=== PATIENT | female | born 1960 | race Caucasian/White ===

== ENCOUNTER → 2021-05-09 09:49 | Outpatient (BNVA) | payer BC, SELFPAY | PROVIDERS: Visit Provider Nurse Practitioner Family | DX: Z20.822 Contact with and (suspected) exposure to COVID-19 (principal); J01.00 Acute maxillary sinusitis, unspecified; Z11.52 Encounter for screening for COVID-19 | CPT/HCPCS: 87635 ==

== ENCOUNTER → 2021-05-23 10:24 | Outpatient (BNVA) | payer BC, SELFPAY | PROVIDERS: Visit Provider Obstetrics & Gynecology | DX: Z12.4 Encounter for screening for malignant neoplasm of cervix (principal) | CPT/HCPCS: 88175 ==

== ENCOUNTER → 2021-10-15 14:09 | Outpatient (BNVA) | payer OTHER, SELFPAY | PROVIDERS: Visit Provider Nurse Practitioner Family | DX: Z20.822 Contact with and (suspected) exposure to COVID-19 (principal) | CPT/HCPCS: 87635 ==

== ENCOUNTER → 2021-12-26 08:42 | Outpatient (BNVA) | payer OTHER, SELFPAY | PROVIDERS: Visit Provider Nurse Practitioner | DX: I10 Essential (primary) hypertension (principal) | CPT/HCPCS: 80053; 80061; 84443 ==

== ENCOUNTER 2022-08-12 08:17 | Outpatient (CLI) | payer OTHER, SELFPAY ==
--- NOTE | 2022-08-12 08:27 | MM_ITS ---
WS: [email or web address] SCREENING DIGITAL BREAST TOMOSYNTHESIS MAMMOGRAM WITH CAD HISTORY: SCREENING COMPARISON: 09/20/2015 Bilateral CC and MLO with tomosynthesis and synthetic mammography submitted. Computer aided detection analyzed. Breast composition: There are scattered areas of fibroglandular density. Circumscribed 10 mm mass in the anterior medial LEFT breast near 7:00. Otherwise no interval change s dae 2014. No suspicious calcifications. MM/[place] [id number] IMPRESSION: BI-RADS: 0-Incomplete: Need additional imaging evaluation FOLLOW UP: Need Additional Imaging Recommendation: Limited LEFT breast ultrasound directed to 7:00.
== END 2022-08-12 08:18 | disposition home or self-care (01) ==
PROVIDERS: PCP Nurse Practitioner; Visit Provider Nurse Practitioner
DX: Z12.31 Encounter for screening mammogram for malignant neoplasm of breast (principal)
CPT/HCPCS: 77063; 77067

== ENCOUNTER 2022-09-10 14:09 | Outpatient (CLI) | payer OTHER, SELFPAY ==
--- NOTE | 2022-09-10 14:43 | US_ITS ---
WS: [email or web address] ULTRASOUND LEFT BREAST HISTORY: Follow-up LEFT breast mass seen by mammography. COMPARISON: 08/12/2022 and 12/17/2018 TECHNIQUE: 2-D and Doppler. In the LEFT breast at 8:00, 2 cm from the nipple is a hypoechoic well-circumscribed mass measuring 9 x 7 x 8 mm. There is mild peripheral increased vascularity. This corresponds in size and location to the mammographic abnormality. US/US breast LT limited* [id number] IMPRESSION: BI-RADS: 4-Suspicious Finding-Biopsy Should Be Considered FOLLOW-UP: Biopsy Recommended Ultrasound-guided biopsy recommended LEFT breast mass at 8:00. Notified JESS Chinchilla at 09/10/2022 3:43 PM.
== END 2022-09-10 14:10 | disposition home or self-care (01) ==
PROVIDERS: PCP Nurse Practitioner; Visit Provider Nurse Practitioner
DX: R92.8 Other abnormal and inconclusive findings on diagnostic imaging of breast (principal); N63.24 Unspecified lump in the left breast, lower inner quadrant
CPT/HCPCS: 76642

== ENCOUNTER 2022-10-09 09:24 | Outpatient (CLI) | payer OTHER, SELFPAY ==
--- NOTE | 2022-10-09 09:48 | US_ITS ---
WS: [email or web address] ULTRASOUND-GUIDED LEFT BREAST BIOPSY HISTORY: LEFT breast mass. COMPARISON: 12/17/2018, 08/12/2022 and 09/10/2022 Procedure, risks and complications are explained to the patient. Medications are reviewed. Consent is obtained. The mass in the LEFT breast is localized with ultrasound. Mass localizes to 8:00, 2 cm from the nippl e. Skin is cleansed with ChloraPrep and anesthetized with 1% buffered lidocaine. Small dermatome is m jesu. Under sterile conditions mass is biopsied with a 14-gauge Achieve needle. Multiple core biopsies are performed. Material placed in formalin and sent to pathology for review. No complications encoun tered. Breast tissue marker (Bard ultrasound enhanced ribbon): Single. Patient left the radiology suite with no complications. [place] is [place] [facility] [place] [facility] with any concerns. US/[place] [id number] IMPRESSION: 1. Uncomplicated core needle biopsy LEFT breast mass at 8:00, 2 cm from the ni pple. PATHOLOGY: Invasive ductal carcinoma, moderately to poorly differentiated. [place] profile pending. RECOMMENDATION: Surgical and oncologic follow-up.
[2022-10-14 06:19] LABS: Breast Profile ER,PR,HER2,Ki-6 See Report
== END 2022-10-09 09:25 | disposition home or self-care (01) ==
PROVIDERS: PCP Nurse Practitioner; Visit Provider Nurse Practitioner
DX: N63.24 Unspecified lump in the left breast, lower inner quadrant (principal); C50.312 Malignant neoplasm of lower-inner quadrant of left female breast
CPT/HCPCS: 19083; 88305; 88361; 88374

== ENCOUNTER → 2022-10-13 09:55 | Outpatient (BNVA) | payer OTHER, SELFPAY | PROVIDERS: PCP Nurse Practitioner; Visit Provider Nurse Practitioner Family | DX: G43.909 Migraine, unspecified, not intractable, without status migrainosus (principal); I10 Essential (primary) hypertension; F41.9 Anxiety disorder, unspecified; R89.7 Abnormal histological findings in specimens from other organs, systems and tissues | CPT/HCPCS: 80053; 80061; 84443; 85025 ==

== ENCOUNTER 2022-10-24 07:49 | Day surgery (SDC) | payer OTHER, SELFPAY ==
[2022-10-23 13:04] VITALS: BMI 38.0
[2022-10-24] VITALS (9 sets, daily range): BP systolic 138–178; BP diastolic 57–98; PULSE 18–81; RESP 15–19; TEMP 36.2–36.6; O2SAT 92–100
--- NOTE | 2022-10-24 | US_ITS ---
WS: [email or web address] ULTRASOUND-GUIDED LEFT BREAST NEEDLE LOCALIZATION HISTORY: Localization prior to surgery. LEFT breast mass at 8:00. Known malignancy. Procedure, risks and complications were explained to the patient. Consent is obtained. Skin is cleansed with ChloraPrep and anesthetized with 1% buffered lidocaine. Needle and guidewire pl aced to the area of concern with no complications. Ultrasound guidance performed during the needle lo calization. Guidewire is left within the lesion. Guidewire secured and no complications encountered. Patient is being transported to the OR suite. Specimen radiograph is also reviewed. Specimen contains the mass and the wire. RECOMMENDATIONS: Follow-up with surgery and oncology. US/US breast surgical specimen IMPRESSION: 1. Uncomplicated wire localization of the LEFT breast mass at 8:00. 2. Mass contained within the specimen. PATHOLOGY RESULTS: Excisional biopsy contains the mass, invasive carcinoma. Ple ase see the entire report for further details.
--- NOTE | 2022-10-24 08:15 | US_ITS ---
WS: [email or web address] ULTRASOUND-GUIDED LEFT BREAST NEEDLE LOCALIZATION HISTORY: Localization prior to surgery. LEFT breast mass at 8:00. Known malignancy. Procedure, risks and complications were explained to the patient. Consent is obtained. Skin is cleansed with ChloraPrep and anesthetized with 1% buffered lidocaine. Needle and guidewire pl aced to the area of concern with no complications. Ultrasound guidance performed during the needle lo calization. Guidewire is left within the lesion. Guidewire secured and no complications encountered. Patient is being transported to the OR suite. Specimen radiograph is also reviewed. Specimen contains the mass and the wire. RECOMMENDATIONS: Follow-up with surgery and oncology. US/[place] [id number] IMPRESSION: 1. Uncomplicated wire localization of the LEFT breast mass at 8:00. 2. Mass contained within the specimen. PATHOLOGY RESULTS: Excisional biopsy contains the mass, invasive carcinoma. Ple ase see the entire report for further details.
--- NOTE | 2022-10-24 08:30 | PC.NURSE ---
Patient taken to [facility] per ora
--- NOTE | 2022-10-24 09:23 | PC.NURSE ---
Patient was injected with 1.05 mCi Tc99m Tilmanocept Lymphoseek at 0905 by Medina Bermudez [facility] in the upper outer ( 1:00 position) quadrant of the left breast. No complications.
[2022-10-24] MEDS: sodium chloride 0.9% 1,000 ML 30 ML IV (09:30)
--- NOTE | 2022-10-24 09:33 | W.PM.OPSUD ---
Surgery/Procedure H&P Update DATE OF PROCEDURE: October 24, 2022 DATE H&P PERFORMED: 10/21/22 PREOP DIAGNOSIS: Left Breast Cancer PLANNED PROCEDURE: Operation Date: 10/24/22 09:45 Proposed Procedures p needle loc left breast lumpectomy sentinel lymph node bx 3850 [id number] 42433 61912, N63.20(Left) - DO lauren Rothman Sentinal Lymph Node Biopsy(Left) - Hung Alicia DO
--- NOTE | 2022-10-24 09:34 | ANES.PREANE2 ---
Pre-Anesthetic Assessment Height/Weight: Height 1.63 m Weight 100.698 kg Temp Pulse Resp BP Pulse Ox O2 Del Method 97.4 F L 68 17 177/88 99 10/24/22 08:12 10/24/22 08:12 10/24/22 08:12 10/24/22 08:12 10/24/22 08:12 10/24/22 08:12 Preop Diagnosis: Left Breast Cancer Operation Date: 10/24/22 09:45 Proposed Procedures p needle loc left breast lumpectomy sentinel lymph node bx 3850 18434 12235 49477, N63.20(Left) - Hung lAicia DO s Sentinal Lymph Node Biopsy(Left) - Hung Alicia DO Familial anesthetic complications: PONV Was Beta Stu taken within 24 hours: N/A Was Clonidine taken within 24 hours: N/A Last intake: Intake Last Liquid Date 10/24/22 Last Liquid Time 21:00 Last Solid Date 10/24/22 Last Solid Time 21:00 Social No alcohol and No tobacco Exam alert, oriented x 3, clear to auscultation bilaterally and regular rate & rhythm Airway Mallampati: Class II Dentition: full Pulmonary None reported snores CV/HEM Hypertension None reported Hepatic None reported GI None reported Metabolic None reported Anesthetic Plan ASA status: 3 Anesthesia: General Risk of > 500 ml blood loss (7ml/kg in children): No Medications/Allergies Home Medications Medication Instructions Recorded Confirmed Last Taken Type lisinopril 20 mg tablet 20 mg PO DAILY #30 tabs 10/13/22 10/23/22 10/23/22 Rx metoprolol tartrate 50 mg tablet 50 mg PO BID #60 tabs 10/13/22 10/23/22 10/23/22 Rx doxepin 10 mg capsule 10 mg PO TID #90 caps 10/17/22 10/24/22 Unknown Rx venlafaxine 75 mg capsule,extended 75 mg PO QAM #30 caps 10/17/22 10/23/22 10/23/22 Rx release 24 hr (Effexor XR) Allergies Allergy/AdvReac Type Severity Reaction Status Date / Time adhesive Allergy rash Verified 10/23/22 13:02 [facility] Anesthesia Medical History Essential hypertension Migraine Obesity (BMI 30-39.9) Surgical History History of ankle surgery left History of hysterectomy supracervical LH History of surgery on wrist left Family History Mother Cervical cancer Thyroid disease hyperthyroidism Father Diabetes Hyperlipidemia Stroke Denies family history of CAD (coronary artery disease) Clotting disorder Chronic kidney disease (CKD) Bleeding disorder Hypertension Social History Smoking and tobacco status: never smoked Second hand smoke exposure: No Smoking risk assessment/counseling performed?: Yes Alcohol intake: current Desire information about alcohol rehabilitation?: No Counseling given: Yes Desire information about substance/drug rehabilitation?: No Counseling given: No Adopted: No Caregiver/support person: No Lives independently: Yes Housing: House Marital status: Single Number of children: 3 Highest education level completed: High School Graduate service: No Current occupational status: employed Current occupation: [employer] History of recent travel: No Current gender identity: Female Data Anesthesia Cardiac Studies: No Data to Display
[2022-10-24] MEDS: midazolam 1 mg/mL INJ 2 mL 2 MG IVP (09:40)
[2022-10-24] MEDS: ceFAZolin 2,000 MG in sodium chloride 0.9% (plus) 50 ML 100 MG IV (09:49)
[2022-10-24] MEDS: isosulfan blue 10 mg/mL SDV 5mL SUBCUT (11:11)
--- NOTE | 2022-10-24 11:23 | PM.OP ---
Operative Report Date of procedure: October 24, 2022 Pre-op diagnosis: Preop Diagnosis Left Breast Cancer Post-op diagnosis: same Procedure done: Left breast lumpectomy with needle insertion and radiologic correlation and sentinel lymph node biopsy Implants: Pepe Specimens removed/disposition: Left breast lumpectomy Additional superior margin Left axillary sentinel lymph node Surgeon: Dr. Hung Alicia DO Anesthesia: General Estimated blood loss (mL): 10 Complications: None apparent Brief History: There is a very pleasant 62-year-old female with biopsy-proven left breast cancer. Left breast lumpectomy with needle insertion and radiologic correlation and sentinel lymph node biopsy was indicated. The risks and benefits were explained and documented. Procedure: After radiotracer was injected and wire localization was performed by radiology, the patient was brought back into the operating room. She was placed on the OR table in the supine position. The left breast and axilla were inspected prepped and draped in usual sterile fashion. Lymphazurin blue was injected underneath the left nipple and massaged for 5 minutes. A timeout was performed. All present were in agreement. A 4 cm incision was made in the left axilla. Dissection was carried down with electrocautery. The [place] counter was used to locate a sentinel lymph node. The nipple measured 9428 on the [place] counter, and a blue sentinel lymph node was identified in the left axilla that measured 518 on the [place] counter. Inspection of the axilla revealed no other blue lymph nodes or areas of [place] counter recognition. Hemostasis was noted. Next, after localization a semicircular incision was made around the medial aspect of the areola. Electrocautery was used to carve out a lumpectomy specimen. The entire needle was included. Dissection was carried down to the pectoralis major muscle. Specimen was taken out en bloc. Short stitch tran superior. Long stitch tran lateral. Double tailed stitch tran anterior. The superior margin appeared to be close and therefore additional superior margin was taken. An additional slice of superior margin was taken with electrocautery. Short stitch marked superior. Long stitch marked lateral. Double stitch marked inferior. Hemostasis was achieved with electrocautery. Specimen was sent to radiology who said the clip and wire were surrounded by adequate tissue margins. The dermis was approximated with 3-0 Vicryl. The skin was closed with 4-0 Monocryl in a subcuticular and running fashion. Dermabond was applied. Patient tolerated the procedure well.
--- NOTE | 2022-10-24 11:57 | PC.NURSE ---
Report received from Wolfgang Noe RN
[2022-10-24] MEDS: TRAMadol 50 mg Tablet 100 MG PO (12:48)
--- NOTE | 2022-10-24 13:24 | ANE.PACU2 ---
Inpatient post-anesthesia follow up: Airway intact: Yes Vital signs: Temperature 97.1 F Pulse Rate 68 Respiratory Rate 15 Blood Pressure 138/63 Pulse Oximetry 93 Oxygen Delivery Me thod Room Air Oxygen Flow Rate 6 Fraction of Inspir ed Oxygen Hydration adequate: Yes Nausea and vomiting: No Pain level: 1 Mental status: Baseline
== END 2022-10-24 13:10 | disposition home or self-care (01) ==
PROVIDERS: PCP Nurse Practitioner; Visit Provider Surgery
PROC: (CPT 19120; principal; 2022-10-24 09:45)
PROC: (CPT 19301; 2022-10-24 09:45)
DX: C50.912 Malignant neoplasm of unspecified site of left female breast (principal); I10 Essential (primary) hypertension
CPT/HCPCS: 19301; 38500; 19285; 38792; 88305; 88307; A9520; C1889; J0330; J0690; J1100; J1170; J1200; J2250; J2370; J2405; J2704; J3010; J3490; J7030; Q9968

== ENCOUNTER 2022-11-04 15:14 | Outpatient (CLI) | payer OTHER, SELFPAY ==
--- NOTE | 2022-11-04 15:00 | XR_ITS ---
WS: [email or web address] DEXA (DUAL ENERGY X-RAY ABSORPTIOMETRY) Bone mineral density was performed using a [facility] machine. HISTORY: Baseline COMPARISON: None available. Lumbar spine BMD (L1-L4): 1.101 g/cm2 T score: -0.7 Z score: -0.2 Total hip BMD: Left: 0.978 g/cm2. T score: -0.2 Z score: 0.1 Right: 0.944 g/cm2. T score: -0.5 Z score: -0.2 10 year probability of a major osteoporotic fracture is 12.4%. XR/XR DEXA axial skeleton* [id number] IMPRESSION: NORMAL BONE MINERAL DENSITY based upon the WHO classification for females.
== END 2022-11-04 15:15 | disposition home or self-care (01) ==
PROVIDERS: PCP Nurse Practitioner; Visit Provider Internal Medicine Hematology & Oncology
DX: C50.912 Malignant neoplasm of unspecified site of left female breast (principal); Z79.811 Long term (current) use of aromatase inhibitors
CPT/HCPCS: 77080

== ENCOUNTER 2022-12-24 13:44 | Oncology outpatient (recurring) (ONCR) | payer OTHER, MEDICAID, SELFPAY ==
[2022-11-28 09:41] LABS: Basophils % 0.3 %; Eosinophils # 0.2 10^3/uL (0.0-0.8); Eosinophils % 3.5 %; Hematocrit 39.7 % (37.0-47.0); Hemoglobin 12.7 g/dL (11.5-15.3); Lymphocytes % 31.8 %; Mean Corpuscular Hemoglobin 28.9 pg (28.0-34.0); Mean Corpuscular Volume 90.2 fl (81-99); Mean Platelet Volume 12.4 fL (7.4-10.4); Monocytes # 0.4 10^3/uL (0.2-0.9); Monocytes % 6.1 %; Neutrophils # 3.69 10^3/uL (1.8-7.7); Neutrophils % 58.1 %; Nucleated Red Blood Cells % 0 %; Platelet Count 273 10^3/cmm (130-400); Red Cell Distribution Width 12.8 % (12.1-15.1); White Blood Count 6.4 10^3/uL (4.0-10.0)
[2022-11-28 09:57] LABS: Alanine Aminotransferase 18 U/L (0-33); Albumin Level 4.2 g/dL (3.5-5.2); Alkaline Phosphatase 75 U/L (35-105); Anion Gap 13.9 (5-19); Aspartate Amino Transferase 14 U/L (0-32); Blood Urea Nitrogen 11 mg/dL (8-23); Calcium 9.2 mg/dL (8.5-10.5); Carbon Dioxide 26 mmol/L (22-29); Chloride 105 mmol/L (98-107); Globulin 2.9 g/dL (1.3-4.6); Glomerular Filtration Rate 63.2 mL/min (90-130); Glucose 141 mg/dL (65-115); Osmolality Calculated 294 mOsm/kg (285-295); Potassium 3.9 mmol/L (3.5-5.1); Sodium 141 mmol/L (136-145); Total Bilirubin 0.4 mg/dL (0.15-1.2); Total Protein 7.1 g/dL (6.6-8.7)
--- NOTE | 2022-12-24 14:41 | N.ONRAD NP_ITS ---
Radiation Oncology Consultation Patient Name: Connor Ayers Date of : 1960 Date of Service: 12/24/2022 Attending Physician: Jose Martin Samuel M.D. Connor Ayers was seen in consultation this afternoon at the request of Alea Chowdhury M.D. for consideration of adjuvant radiotherapy in the management of a recently diagnosed early stage breast cancer. A screening mammogram (personally reviewed in [facility]) ordered on August 12, 2022 revealed a 1 cm circumscribed mass at the 7 o'clock position within the left breast. Ultrasonography demonstrated a hypoechoic mass located at the 8 o'clock position that was 2 cm from the nipple and measured 0.9 cm x 0.7 cm by 0.8 cm corresponding to the mammographic abnormality. An ultrasound-guided biopsy completed on October 09, 2022 identified a moderately to poorly-differentiated invasive ductal carcinoma. The breast cancer profile was positive for estrogen receptor (95%) and progesterone receptor (95%). HER-2 analysis was negative (IHC 2+; FISH ratio was 1.5). The Ki-67 was 5%. A needle localized left breast lumpectomy and sentinel lymph node biopsy was performed on October 24, 2022 by Hung Alicia D.O. The pathology report confirmed a 7 mm grade 2 invasive ductal carcinoma. Ductal carcinoma in situ was not identified. The margin was negative. A sentinel lymph node biopsy on identified two benign lymph nodes. An Oncotype DX Recurrence Score was 9 (average chemotherapy benefit <1%. She has been prescribed an aromatase inhibitor (Arimidex). I discussed with Ms. Ayers The [place] [employer] on Cancer Staging and specifically the patient's pathologic stage IA (T1bN0) breast cancer, I also reviewed the National Comprehensive Cancer Network Guidelines recommending adjuvant radiotherapy. This endorsement for treatment is in accordance with the classic study by the NSABP comparing mastectomy, lumpectomy, and lumpectomy with radiotherapy and the Early Breast Cancer Trialist Collaborative Group meta-analysis. She is aware that the addition of radiotherapy to lumpectomy provides improvement in local control and overall survival. Prior to beginning treatment, a planning CT scan will be acquired to delineate the clinical target volume. I anticipate a three week course of hypofractionated radiotherapy to the breast. The potential toxicities of adjuvant breast radiotherapy were recounted. The patient has verbalized understanding and would like to proceed as recommended. The patient's medical treatment plan was discussed with Alea Chowdhury M.D. Signed by: Jose Martin Samuel 12/24/2022 2:39:48 PM
[2023-01-02 14:30] LABS: BRCA 1 & 2 Clinical Interpreta NEGATIVE; BRCA 1&2 Result NEGATIVE
== END 2022-12-26 23:59 | disposition home or self-care (01) ==
PROVIDERS: PCP Nurse Practitioner; Visit Provider Internal Medicine Hematology & Oncology
DX: C50.812 Malignant neoplasm of overlapping sites of left female breast (principal); Z17.0 Estrogen receptor positive status [ER+]
CPT/HCPCS: 36415; 80053; 81162; 85025; 99205

== ENCOUNTER 2023-03-06 08:48 | Oncology outpatient (recurring) (ONCR) | payer OTHER, SELFPAY ==
[2023-03-06 09:41] LABS: Alanine Aminotransferase 19 U/L (0-33); Albumin Level 4.4 g/dL (3.5-5.2); Alkaline Phosphatase 75 U/L (35-105); Anion Gap 16.2 (5-19); Aspartate Amino Transferase 17 U/L (0-32); Blood Urea Nitrogen 15 mg/dL (8-23); Calcium 9.5 mg/dL (8.5-10.5); Carbon Dioxide 22 mmol/L (22-29); Chloride 105 mmol/L (98-107); Globulin 2.7 g/dL (1.3-4.6); Glomerular Filtration Rate 72.4 mL/min (90-130); Glucose 140 mg/dL (65-115); Osmolality Calculated 291 mOsm/kg (285-295); Potassium 4.2 mmol/L (3.5-5.1); Sodium 139 mmol/L (136-145); Total Bilirubin 0.3 mg/dL (0.15-1.2); Total Protein 7.1 g/dL (6.6-8.7)
[2023-03-06 10:32] LABS: Basophils % 0.3 %; Eosinophils # 0.3 10^3/uL (0.0-0.8); Eosinophils % 3.7 %; Hematocrit 42.6 % (37.0-47.0); Hemoglobin 13.9 g/dL (11.5-15.3); Lymphocytes # 2.3 10^3/uL (0.8-4.8); Lymphocytes % 32.9 %; Mean Corpuscular HGB Conc 32.6 g/dL (30.0-36.0); Mean Corpuscular Hemoglobin 29.1 pg (28.0-34.0); Mean Corpuscular Volume 89.3 fl (81-99); Mean Platelet Volume 12.4 fL (7.4-10.4); Monocytes # 0.5 10^3/uL (0.2-0.9); Monocytes % 6.4 %; Neutrophils # 3.96 10^3/uL (1.8-7.7); Neutrophils % 56.4 %; Nucleated Red Blood Cells % 0 %; Platelet Count 299 10^3/cmm (130-400); Red Blood Count 4.77 10^6/uL (4.1-5.3); Red Cell Distribution Width 13.8 % (12.1-15.1)
== END 2023-03-27 23:59 | disposition home or self-care (01) ==
PROVIDERS: PCP Nurse Practitioner; Visit Provider Internal Medicine Hematology & Oncology
DX: C50.912 Malignant neoplasm of unspecified site of left female breast (principal)
CPT/HCPCS: 80053; 85025

== ENCOUNTER 2023-04-08 14:43 | Oncology outpatient (recurring) (ONCR) | payer OTHER, SELFPAY | END 2023-04-27 23:59 | disposition home or self-care (01) | LOC: ONCMED 14:44 | PROVIDERS: PCP Nurse Practitioner; Visit Provider Internal Medicine Hematology & Oncology | DX: Z53.9 Procedure and treatment not carried out, unspecified reason (principal) ==

== ENCOUNTER → 2023-05-04 09:28 | Outpatient (BNVA) | payer OTHER, SELFPAY | PROVIDERS: PCP Nurse Practitioner; Visit Provider Nurse Practitioner | DX: F41.9 Anxiety disorder, unspecified (principal); I10 Essential (primary) hypertension | CPT/HCPCS: 80053; 80061; 84443; 85025 ==

== ENCOUNTER → 2023-05-05 09:28 | Outpatient (BNVA) | payer OTHER, SELFPAY | PROVIDERS: PCP Nurse Practitioner; Visit Provider Nurse Practitioner | DX: F41.9 Anxiety disorder, unspecified (principal); I10 Essential (primary) hypertension; R73.9 Hyperglycemia, unspecified | CPT/HCPCS: 83036 ==

== ENCOUNTER → 2023-09-15 08:23 | Outpatient (BNVA) | payer OTHER, SELFPAY | PROVIDERS: PCP Nurse Practitioner; Visit Provider Nurse Practitioner | DX: E11.65 Type 2 diabetes mellitus with hyperglycemia (principal); I10 Essential (primary) hypertension; F41.9 Anxiety disorder, unspecified | CPT/HCPCS: 80053; 80061; 82607; 83036; 84443; 85025 ==

== ENCOUNTER → 2024-03-15 11:14 | Outpatient (BNVA) | payer MEDICARE, OTHER, SELFPAY | PROVIDERS: PCP Nurse Practitioner; Visit Provider Nurse Practitioner | DX: E11.65 Type 2 diabetes mellitus with hyperglycemia (principal); Z12.11 Encounter for screening for malignant neoplasm of colon; I10 Essential (primary) hypertension; E55.9 Vitamin D deficiency, unspecified; Z79.899 Other long term (current) drug therapy | CPT/HCPCS: 71046; 80053; 80061; 82306; 82607; 83036; 84443; 85025; 85651; 86140 ==

== ENCOUNTER 2024-03-21 11:15 | Oncology outpatient (recurring) (ONCR) | payer MEDICARE, OTHER, SELFPAY ==
--- NOTE | 2024-03-21 11:30 | MM_ITS ---
WS: [email or web address] VIEWS: MLO, CC, and ML views both breasts. 3D digital tomosynthesis is also included in this exam. A dditional CC spot compression tomogram of the LEFT breast included in the series Comparison made with prior exam of 09/20/2015, 01/22/2017, 12/17/2018, 08/12/2022, 07/16/2023. Findings: There was no sign of mass, architectural distortion or suspicious calcification in either breast. Sta ble appearing postoperative change in the lower medial LEFT breast. Further evaluation of the LEFT br east with regional ultrasound is suggested. There are scattered areas of fibroglandular density MM/[place] [id number] Impression: BI-RADS: 0-Incomplete: Need additional imaging evaluation FOLLOW-UP: See Report This mammogram was also analyzed by the Computer Aided Detection System R2 Imag e Machine Molder.
--- NOTE | 2024-03-21 12:58 | US_ITS ---
WS: [email or web address] Exam: US breast LT limited* [id number] Date/Time of Exam: 03/21/2024 1:02 PM Reason For Exam: MASS Regional ultrasound of the central LEFT breast is performed. There was no sign of suspicious solid ma ss or nodule in the central LEFT breast. No cysts were identified in this region. US/US breast LT limited* [id number] IMPRESSION: 1. No suspicious ultrasound finding in the central LEFT breast.
== END 2024-03-27 23:59 | disposition home or self-care (01) ==
LOC: RAD 11:15 → ONCMED 13:43
PROVIDERS: PCP Nurse Practitioner; Visit Provider Nurse Practitioner Family
DX: Z08 Encounter for follow-up examination after completed treatment for malignant neoplasm (principal); Z85.3 Personal history of malignant neoplasm of breast; Z17.0 Estrogen receptor positive status [ER+]; Z80.49 Family history of malignant neoplasm of other genital organs; R41.9 Unspecified symptoms and signs involving cognitive functions and awareness; M25.50 Pain in unspecified joint
CPT/HCPCS: 76642; 77062; 99214; G0279

== ENCOUNTER → 2024-04-13 09:47 | Outpatient (BNVA) | payer MEDICARE, OTHER, SELFPAY | PROVIDERS: PCP Nurse Practitioner; Referring Provider Nurse Practitioner; Visit Provider Surgery | DX: Z12.11 Encounter for screening for malignant neoplasm of colon (principal) | CPT/HCPCS: 99024; 99204 ==

== ENCOUNTER 2024-04-26 14:27 | Oncology outpatient (recurring) (ONCR) | payer MEDICARE, OTHER, SELFPAY | END 2024-04-27 23:59 | disposition home or self-care (01) | LOC: ONCMED 14:28 | PROVIDERS: PCP Nurse Practitioner; Visit Provider Nurse Practitioner Family | DX: C50.312 Malignant neoplasm of lower-inner quadrant of left female breast (principal) | CPT/HCPCS: 99214 ==

== ENCOUNTER 2024-05-10 09:35 | Day surgery (SDC) | payer MEDICARE, OTHER, SELFPAY ==
[2024-05-10 09:54] VITALS: BP 148/81; PULSE 77; RESP 18; TEMP 36.1; O2SAT 100; BMI 36.8
[2024-05-10] MEDS: sodium chloride 0.9% 1,000 ML 30 ML IV (09:59)
--- NOTE | 2024-05-10 10:03 | W.PM.OPSUD ---
Surgery/Procedure H&P Update DATE OF PROCEDURE: May 10, 2024 DATE H&P PERFORMED: 04/13/24 H&P UPDATE INFORMATION: I have reviewed H&P completed within last 30 days, I have examined patient prior to procedure, No changes to prior documentation and H&P is in [facility] EMR on date indicated PLANNED PROCEDURE: Operation Date: 05/10/24 10:30 Proposed Procedures p Colonoscopy 07674, G0105, Z12.11(Not Applicable) - Jose Martin Rosenbaum MD
--- NOTE | 2024-05-10 10:16 | P.ANESASSM_ITS ---
Pre-Anesthetic Assessment Height/Weight: Height 1.63 m Weight 97.522 kg Temp Pulse Resp BP Pulse Ox O2 Del Method 97 F L 77 18 148/81 100 Room Air 05/10/24 09:54 05/10/24 09:54 05/10/24 09:54 05/10/24 09:54 05/10/24 09:54 05/10/24 09:54 Preop Diagnosis: screening Operation Date: 05/10/24 10:30 Proposed Procedures p Colonoscopy 67263, G0105, Z12.11(Not Applicable) - Jose Martin Rosenbaum MD Familial anesthetic complications: none Was Beta Stu taken within 24 hours: Yes Last intake: Intake Last Liquid Date 05/09/24 Last Liquid Time 23:20 Last Solid Date 05/08/24 Last Solid Time 20:30 Social Alcohol (one drink per week.) Exam alert, oriented x 3, clear to auscultation bilaterally and regular rate & rhythm Airway Submandibular: within normal limits Cervical ROM: within normal limits Mallampati: Class II Dentition: full Pulmonary None reported CV/HEM Hypertension None reported Hepatic None reported GI Gastroesophageal Reflux Disease Anxiety related per patient denies S/S today. Metabolic Diabetes Mellitus and Hyperlipidemia [facility] [place] None reported Neuropsych Anxiety and Depression October 24, 2022 showed 0.7 cm invasive ductal carcinoma- Left lumpectomy monitoring at this time. Anesthetic Plan ASA status: 3 Anesthesia: MAC Medications/Allergies Home Medications Medication Instructions Recorded Confirmed Last Taken Type cetirizine 10 mg tablet (Zyrtec) 10 mg PO DAILY 05/05/23 05/05/24 05/09/24 History bupropion HCl 150 mg 24 hr tablet, 150 mg PO QAM #30 tabs 01/27/24 05/05/24 05/10/24 08:15 Rx extended release (Wellbutrin XL) metformin 500 mg tablet,extended 500 mg PO DAILY #30 tabs 01/27/24 05/05/24 05/05/24 Rx release 24 hr metoprolol succinate 50 mg 50 mg PO .at bedtime #30 tabs 01/27/24 05/05/24 05/09/24 Rx tablet,extended release 24 hr (Toprol XL) sertraline 25 mg tablet (Zoloft) 25 mg PO DAILY #30 tabs 01/27/24 05/05/24 05/09/24 Rx valsartan 320 mg tablet (Diovan) 320 mg PO DAILY #30 tabs 01/27/24 05/05/24 05/09/24 Rx tirzepatide 2.5 mg/0.5 mL 2.5 mg (0.5 mL) SUBCUT .weekly #6 03/18/24 05/05/24 04/27/24 Rx subcutaneous pen injector mL (Mounjaro) ondansetron HCl 4 mg tablet 4 mg PO Q8H PRN nausea and 04/13/24 05/05/24 05/10/24 08:15 Rx vomiting #7 tabs Test Boost Max PO BID energy 04/26/24 05/05/24 History conjugated estrogens 0.625 mg/gram 0.3125 mg vaginal .BIW #30 grams 05/02/24 05/05/24 Unknown Rx vaginal cream (Premarin) lorazepam 1 mg tablet 1 mg PO BID PRN Anxiety 05/10/24 05/10/24 05/10/24 08:15 History Allergies Allergy/AdvReac Type Severity Reaction Status Date / Time adhesive Allergy rash Verified 04/13/24 09:54 [facility] Anesthesia Medical History (Updated 04/30/24 @ 16:05 by Adiel Rogers MD) Breast cancer Diabetes mellitus with hyperglycemia, without long-term current use of insulin Anxiety Obesity (BMI 30-39.9) Migraine Essential hypertension Surgical History History of lumpectomy of left breast History of surgery on wrist left History of ankle surgery left History of hysterectomy supracervical LH Family History Mother Cervical cancer Thyroid disease hyperthyroidism Father Diabetes Hyperlipidemia Stroke Denies family history of CAD (coronary artery disease) Clotting disorder Chronic kidney disease (CKD) Bleeding disorder Hypertension Social History Smoking and tobacco/nicotine status: never used tobacco/nicotine Second hand smoke exposure: No Alcohol intake: current Substance/Drug Use: unknown Adopted: No Caregiver/support person: No Lives independently: Yes Housing: House Marital status: Single Number of children: 3 Highest education level completed: High School Graduate service: No Current occupational status: employed Current occupation: [employer] Do you think of yourself as: Straight/Heterosexual Current gender identity: Female Data Anesthesia Cardiac Studies: No Data to Display
[2024-05-10 10:20] LABS: Glucose Point of Care 126 mg/dL (70-110)
[2024-05-10 11:16] VITALS: BP 93/51; PULSE 67; RESP 14; TEMP 36.1; O2SAT 92
[2024-05-10 11:34] VITALS: BP 140/70; PULSE 75; RESP 18; O2SAT 96
--- NOTE | 2024-05-10 12:05 | ANE.PACU2 ---
Inpatient post-anesthesia follow up: Airway intact: Yes Vital signs: Temperature 97.0 F Pulse Rate 75 Respiratory Rate 18 Blood Pressure 140/70 Pulse Oximetry 96 Oxygen Delivery Me thod Room Air Oxygen Flow Rate Fraction of Inspir ed Oxygen Hydration adequate: Yes Nausea and vomiting: No Pain level: 1 Mental status: Baseline
== END 2024-05-10 12:04 | disposition home or self-care (01) ==
PROVIDERS: PCP Nurse Practitioner; Visit Provider Surgery
PROC: 0DJD8ZZ Inspection of Lower Intestinal Tract, Via Natural or Artificial Opening Endoscopic (ICD-10-PCS; CPT 45378; principal; 2024-05-10 10:30)
DX: Z12.11 Encounter for screening for malignant neoplasm of colon (principal); K57.30 Diverticulosis of large intestine without perforation or abscess without bleeding; D12.3 Benign neoplasm of transverse colon; I10 Essential (primary) hypertension; K21.9 Gastro-esophageal reflux disease without esophagitis; F41.9 Anxiety disorder, unspecified; E78.5 Hyperlipidemia, unspecified; E11.9 Type 2 diabetes mellitus without complications; E66.9 Obesity, unspecified; Z68.36 Body mass index [BMI] 36.0-36.9, adult
CPT/HCPCS: 36416; 45385; 82962; 88305; J2250; J2704; J7030

== ENCOUNTER → 2024-05-11 08:35 | Outpatient (BNVA) | payer MEDICARE, OTHER, SELFPAY | PROVIDERS: PCP Nurse Practitioner; Visit Provider Nurse Practitioner Family | DX: L81.4 Other melanin hyperpigmentation (principal); L82.1 Other seborrheic keratosis; L73.8 Other specified follicular disorders; L81.5 Leukoderma, not elsewhere classified; L82.0 Inflamed seborrheic keratosis; D23.72 Other benign neoplasm of skin of left lower limb, including hip; L70.0 Acne vulgaris | CPT/HCPCS: 17110; 99214 ==

== ENCOUNTER → 2024-08-24 12:00 | Outpatient (BNVA) | payer MEDICARE, OTHER, SELFPAY | PROVIDERS: PCP Nurse Practitioner; Visit Provider Nurse Practitioner | DX: E11.65 Type 2 diabetes mellitus with hyperglycemia (principal); E55.9 Vitamin D deficiency, unspecified | CPT/HCPCS: 80053; 80061; 82306; 82607; 83036; 84443; 85025; 85651; 86140 ==

== ENCOUNTER 2024-09-27 13:15 | Oncology outpatient (recurring) (ONCR) | payer MEDICARE, OTHER, SELFPAY | END 2024-09-27 23:59 | disposition home or self-care (01) | PROVIDERS: PCP Nurse Practitioner; Visit Provider Nurse Practitioner Family | DX: C50.312 Malignant neoplasm of lower-inner quadrant of left female breast (principal); Z17.0 Estrogen receptor positive status [ER+]; Z92.3 Personal history of irradiation; Z79.899 Other long term (current) drug therapy | CPT/HCPCS: 99214 ==

== ENCOUNTER → 2024-12-01 10:28 | Outpatient (BNVA) | payer MEDICARE, OTHER, SELFPAY | PROVIDERS: PCP Nurse Practitioner; Visit Provider Nurse Practitioner | DX: E11.65 Type 2 diabetes mellitus with hyperglycemia (principal); E55.9 Vitamin D deficiency, unspecified | CPT/HCPCS: 80053; 82306; 85025 ==

== ENCOUNTER → 2025-03-02 09:30 | Outpatient (BNVA) | payer OTHER, MEDICARE, SELFPAY | PROVIDERS: PCP Nurse Practitioner; Visit Provider Nurse Practitioner | DX: I10 Essential (primary) hypertension (principal); E11.65 Type 2 diabetes mellitus with hyperglycemia; E55.9 Vitamin D deficiency, unspecified | CPT/HCPCS: 80053; 80061; 82306; 83036; 85025 ==

== ENCOUNTER 2025-03-17 11:15 | Emergency (ER) | payer MEDICARE, OTHER, SELFPAY ==
[2025-03-17] VITALS (7 sets, daily range): BP systolic 112–138; BP diastolic 42–79; PULSE 80–87; RESP 16; TEMP 36.6; O2SAT 95–100
--- NOTE | 2025-03-17 12:18 | XR_ITS ---
WS: [email or web address] Portable AP upright chest, 03/17/2025 Clinical Data: chest pain Comparison: Two-view chest, 03/15/2024 Findings: No nodules, masses or effusions are seen. The heart is normal. The pulmonary vascularity is not increased. No pneumonia or pneumothorax is seen. The aortic arch and descending thoracic aorta show mild tortuosity. Monitor leads are on the chest wall. XR/XR chest 1V portable [id number] Impression: Negative chest.
[2025-03-17] MEDS: lidocaine 2% viscous 15 ML, aluminum-mag hydrox-simethicon 30 ML, sucralfate oral liq 1 GM PO (12:27)
[2025-03-17 12:29] LABS: Basophils % 0.4 %; Eosinophils % 0.4 %; Hematocrit 41.6 % (36-47); Lymphocytes # 0.8 10^3/uL (0.8-4.8); Lymphocytes % 28.4 %; Mean Corpuscular HGB Conc 33.4 g/dL (30-55); Mean Corpuscular Hemoglobin 27.8 pg (27-33); Mean Corpuscular Volume 83.2 fl (85-98); Mean Platelet Volume 11.8 fL (7.4-10.4); Monocytes # 0.2 10^3/uL (0.2-0.9); Monocytes % 7.4 %; Neutrophils # 1.72 10^3/uL (1.8-7.7); Neutrophils % 63.4 %; Nucleated Red Blood Cells % 0 %; Platelet Count 192 10^3/cmm (157-399); Red Cell Distribution Width 13.1 % (12.1-15.1); White Blood Count 2.71 10^3/uL (3.29-11.43)
[2025-03-17 12:43] LABS: Troponin(5th) Baseline < 6 ng/L (0-10)
[2025-03-17 12:50] LABS: Alanine Aminotransferase 26 U/L (0-33); Albumin Level 4.5 g/dL (3.5-5.2); Alkaline Phosphatase 85 U/L (35-105); Anion Gap 18.4 (5-19); Aspartate Amino Transferase 26 U/L (0-32); Blood Urea Nitrogen 18 mg/dL (8-23); Calcium 9.4 mg/dL (8.5-10.5); Carbon Dioxide 22 mmol/L (22-29); Chloride 104 mmol/L (98-107); Globulin 2.7 g/dL (1.3-4.6); Glomerular Filtration Rate 37.6 mL/min (90-130); Glucose 102 mg/dL (65-115); Lipase 71 U/L (13-60); NT Pro B Type Natriuretic Pept 125 pg/mL (0-125); Osmolality Calculated 292 mOsm/kg (285-295); Potassium 4.4 mmol/L (3.5-5.1); Sodium 140 mmol/L (136-145); Total Bilirubin 0.6 mg/dL (0.15-1.2); Total Protein 7.2 g/dL (6.6-8.7)
[2025-03-17 12:57] LABS: Slide Review Slide Review Perform
--- NOTE | 2025-03-17 13:01 | ECG_ITS ---
[facility] Test Date: 2025-03-17 Pat Name: Connor Ayers Department: Room: Gender: Female Employment Counselor: : 1960 Requested By: Jose Angel Gonzalez Order Number: [id number] Sudhir MD: Sophie Hawkins M.D. Measurements Intervals [place] Rate: 77 P: 49 ND: 213 QRS: -7 QRSD: 85 T: 28 QT: 359 QTc: 407 Interpretive Statements SINUS RHYTHM WITH FIRST DEGREE AV BLOCK LOW QRS VOLTAGE IN PRECORDIAL LEADS [QRS DEFLECTION < 1.0 mV IN CHEST LEADS] No previous ECG available for comparison Electronically Signed On 03-19-2025 19:30:01 CDT by Sophie Hawkins M.D. [email or web address]
--- NOTE | 2025-03-17 13:19 | US_ITS ---
WS: [email or web address] ULTRASOUND ABDOMEN LIMITED CLINICAL INFORMATION: RUQ Pain COMPARISON: None. FINDINGS: Liver Size: Normal. Craniocaudal length: 13.1 cm. Echogenicity: Normal. Surface nodularity: None. Mass (size and location): None. Bile ducts Intrahepatic ducts: Normal. Common bile duct diameter: 0.5 cm. Gallbladder Normal. Gallstones: None. Gallbladder sludge: None. Gallbladder wall thickening: None. Pericholecystic fluid: None. Sonographic Long sign: Absent. Pancreas Normal as visualized. Right kidney: Echogenic lesion RIGHT kidney measuring 5 mm likely angiomyolipomaHydronephrosis: None. Size: 9.5 cm x 5.3 cm x 4.5 cm. Abdominal aorta and IVC Visualized portions are normal. Ascites: None. US/US abdomen limited [id number] IMPRESSION: 1. Normal liver. 2. Normal gallbladder. 3. No hydronephrosis in the RIGHT kidney. 4. Echogenic lesion RIGHT kidney measuring 5 mm likely angiomyolipoma
[2025-03-17 14:04] LABS: Bilirubin Urine Negative (Negative); Blood Urine Negative (Negative); Glucose Urine UA Negative (Normal); Ketones Urine Trace (Negative); Leukocyte Esterase Urine Trace (Negative); Nitrate Urine Negative (Negative); Protein Urine Negative (Negative); Specific Gravity, Urine 1.013 (1.005-1.030); Urine Appearance Clear (CLEAR); Urine Color Yellow (Yellow); Urobilinogen Urine 0.2 mg/dL (Negative); pH Urine 5.5 (5-7)
[2025-03-17 14:09] LABS: Bacteria Urine None Seen /hpf; Hyaline Casts Urine 21.08 /lpf; RBC Urine 0-2 /hpf (0-2); Squamous Epithelial Cell Urine 0-5 /hpf (0-5); WBC Urine 0-5 /hpf (0-5)
[2025-03-17 14:16] LABS: Add Urine Culture? No; UA Slide Review UA Slide Review Perf
--- NOTE | 2025-03-17 14:18 | ECG_ITS ---
[facility] Test Date: 2025-03-17 Pat Name: Connor Ayers Department: Room: Gender: Female Wafer Substrate Tester: : 1960 Requested By: Jose Angel Gonzalez Order Number: [id number] Sudhir MD: Sophie Hawkins M.D. Measurements Intervals [place] Rate: 81 P: 45 NE: 212 QRS: -2 QRSD: 84 T: 30 QT: 352 QTc: 410 Interpretive Statements SINUS RHYTHM WITH FIRST DEGREE AV BLOCK LOW QRS VOLTAGE IN PRECORDIAL LEADS [QRS DEFLECTION < 1.0 mV IN CHEST LEADS] No previous ECG available for comparison Electronically Signed On 03-19-2025 19:39:36 CDT by Sophie Hawkins M.D. [id number]
[2025-03-17 14:39] LABS: Troponin 5 2HR < 6.0 ng/L (0-10); Troponin 5 2HR Delta 0 ABS# (0-10)
--- NOTE | 2025-03-17 15:02 | ED_ITS ---
HPI - Chest Pain 2 General: Chief Complaint: Chest Pain Stated Complaint: chest pain(sent by susie) Time Seen by Provider: 03/17/25 12:07 History of Present Illness: This patient is a 65-year-old white female who presents to the ER complaining of chest pain that has been off and on for the past couple of days. She is also having some back pain, nausea, right upper quadrant pain and epigastric pain intermittently. No shortness of breath. Currently she is having some mild discomfort in the epigastric area which she rates a 2. Associated symptoms: Reports abdominal pain and nausea Related Data Home Medications ?Medication ?Instructions ?Recorded ?Confirmed cetirizine 10 mg tablet (Zyrtec) 10 mg PO DAILY 03/02/25 Test Boost Max PO BID energy 04/26/2403/02 Previous Rx's ?Medication ?Instructions ?Recorded ondansetron HCl 4 mg tablet 4 mg PO Q8H PRN nausea and 04/13/24 vomiting #7 tabs estradiol 0.01% (0.1 mg/gram) 1 g vaginal .at bedtime #42.5 grams 06/12/24 vaginal cream (Estrace) triamcinolone acetonide 0.1 % 1 applic topical BID candi h #80 grams 09/27/24 topical cream bupropion HCl 150 mg 24 hr tablet, 150 mg PO QAM #90 t abs 03/02/25 extended release (Wellbutrin XL) metoprolol succinate 50 mg 50 mg PO .at bedtime #90 ta bs 03/02/25 tablet,extended release 24 hr (Toprol XL) sertraline 25 mg tablet (Zoloft) 25 mg PO DAILY #90 ta bs 03/02/25 tirzepatide 10 mg/0.5 mL 10 mg (0.5 mL) SUBCUT .weekl y #2 mL 03/02/25 subcutaneous pen injector (Mounjaro) valsartan 320 mg tablet (Diovan) 320 mg PO DAILY #90 t abs 03/02/25 omeprazole 20 mg capsule,delayed 20 mg PO DAILY #30 ca ps 03/17/25 release Allergies Allergy/AdvReac Type Severity Reaction Status Date / Time adhesive Allergy rash Verified 03/02/25 08:47 metformin AdvReac Severe ADR-Diarrhe Verified 03/02/25 08:47 a oseltamivir (From Tamiflu) AdvReac ADR-Nausea Verified 03/02/25 08:47 Review of Systems 2 General: Reports: 10 or more systems reviewed and unremarkable except in HPI and below Card: Reports: chest pain GI: Reports: abdominal pain and nausea Musc: Reports: back pain PFSH ED 2 PFSH: Medical History (Updated 03/17/25 @ 15:00 by Jose Angel Gonzalez MD) Vitamin D deficiency Breast cancer Diabetes mellitus with hyperglycemia, without long-term current use of insulin Anxiety Obesity (BMI 30-39.9) Migraine Essential hypertension Surgical History History of lumpectomy of left breast History of surgery on wrist left History of ankle surgery left History of hysterectomy supracervical LH Family History Mother Cervical cancer Thyroid disease hyperthyroidism Father Diabetes Hyperlipidemia Stroke Denies family history of CAD (coronary artery disease) Clotting disorder Chronic kidney disease (CKD) Bleeding disorder Hypertension Social History Smoking and tobacco/nicotine status: never used tobacco/nicotine Second hand smoke exposure: No Alcohol intake: current Substance/Drug Use: unknown Adopted: No Caregiver/support person: No Lives independently: Yes Housing: House Marital status: Single Number of children: 3 Highest education level completed: High School Graduate service: No Current occupational status: employed Current occupation: [employer] Do you think of yourself as: Straight/Heterosexual Current gender identity: Female Physical Exam 2 Const: COMMON NORMALS: no acute distress, patient oriented x3 and no limitations GENERAL APPEARANCE: cooperative and comfortable HENMT: COMMON NORMALS: normocephalic, atraumatic, Normal nasal mucous membranes and turbinates present, moist oral mucous membranes and oropharynx normal HEAD & SCALP: normal to inspection, normocephalic and atraumatic F CORRIE & SINUS: normal facial exam NOSE: Normal nasal mucous membranes and turbinates present Eye: COMMON NORMALS: Equal, round and reactive pupils present, EOMs intact bilaterally and conjunctivae normal GENERAL EYE: appearance normal, both eyes and all related structures CONJUNCTIVA: Yes conjunctivae normal PUPIL: Yes Equal, round and reactive pupils present Neck/C-Spine: COMMON NORMALS: supple and no JVD Chest: COMMONS NORMALS: normal inspection of the chest Resp: COMMON NORMALS: normal respiratory effort and clear to auscultation bilaterally AUSCULTATION: clear to auscultation bilaterally Cardio: COMMON NORMALS: no JVD, regular rate, regular rhythm, No gallops present (Cardio), No murmurs present (Cardio) and No rub (Cardio) RATE: r egular rate RHYTHM: regular rhythm GI: COMMON NORMALS: Normal to inspection, nondistended, normoactive bowel sounds present, Soft to palpation and non-tender AUSCULTATION: Yes normoactive bowel sounds PALPATION: Yes Soft to palpation : COMMON NORMALS: Yes no CVA tenderness BLADDER/KIDNEY EXAM: Yes no CVA tenderness Back/Pelvis: COMMON NORMALS: no CVA tenderness and thoracic and lumbar spine normal to inspection Extremity: COMMON NORMALS: normal to inspection Neuro: COMMON NORMALS: patient oriented x3 and CN's II-XII intact bilaterally Psych: COMMON NORMALS: mental status grossly normal, Normal thought process present and cooperative THOUGHT PROCESS: Normal thought process present Skin: COMMON NORMALS: no rashes or lesions noted, turgor normal and no jaundice GENERAL SKIN EXAM: no rashes or lesions noted and turgor normal Course 2 Vital Signs: Vital signs: Vital Signs Temperature 97.8 F 03/17/25 11:16 Pulse Rate 83 03/17/25 14:40 Respiratory Rate 16 03/17/25 14:40 Blood Pressure 117/42 03/17/25 14:40 Pulse Oximetry 98 03/17/25 14:40 Oxygen Delivery Me thod Room Air 03/17/25 11:16 MDM - Chest Pain Medical Decision Making EKG revealed normal sinus rhythm with no ST segment abnormalities. Chest x-ray was normal. CBC revealed a white count of 2.7. CMP was normal. Lipase normal. Troponin less than 6 with a 2-hour level of less than 6. BNP was 125. Urine analysis normal. Abdominal ultrasound was also normal. Patient was given a GI cocktail which she states really did not make a difference. Not sure what is causing her discomfort. I we will place her on a trial of Prilosec to see if that helps. Recommended she follow-up with her primary care provider within 1 week for recheck and possible further evaluation. She was discharged in stable condition. Lab Data 03/17/25 12:14 03/17/25 12:14 Radiology Impressions Chest X-Ray 03/17/25 12:18 Impression: Negative chest. Laboratory Results WBC 2.71 10^3/uL (3.29-11.43) L 03/17/25 12:14 RBC 5.00 10^6/uL (3.85-5.65) 03/17/25 12:14 Hgb 13.90 g/dL (11.27-16.99) 03/17/25 12:14 Hct 41.6 % (36-47) 03/17/25 12:14 MCV 83.2 fl (85-98) L 03/17/25 12:14 MCH 27.8 pg (27-33) 03/17/25 12:14 MCHC 33.4 g/dL (30-55) 03/17/25 12:14 RDW 13.1 % (12.1-15.1) 03/17/25 12:14 Plt Count 192 10^3/cmm (157-399) 03/17/25 12:14 MPV 11.8 fL (7.4-10.4) H 03/17/25 12:14 Neut % (Auto) 63.4 % 03/17/25 12:14 Lymph % (Auto) 28.4 % 03/17/25 12:14 [place] % (Auto) 7.4 % 03/17/25 12:14 Eos % (Auto) 0.4 % 03/17/25 12:14 Baso % (Auto) 0.4 % 03/17/25 12:14 Neut # (Auto) 1.72 10^3/uL (1.8-7.7) L 03/17/25 12:14 Lymph # (Auto) 0.8 10^3/uL (0.8-4.8) 03/17/25 12:14 [place] # (Auto) 0.2 10^3/uL (0.2-0.9) 03/17/25 12:14 Eos # (Auto) 0.0 10^3/uL (0.0-0.8) 03/17/25 12:14 Baso # (Auto) 0.0 10^3/uL (0.0-0.1) 03/17/25 12:14 Nucleated RBC % (auto) 0 % 03/17/25 12:14 Nucleated RBCs # 0.0 /100WBC 03/17/25 12:14 Sodium 140 mmol/L (136-145) 03/17/25 12:14 Potassium 4.4 mmol/L (3.5-5.1) 03/17/25 12:14 Chloride 104 mmol/L (98-107) 03/17/25 12:14 Carbon Dioxide 22 mmol/L (22-29) 03/17/25 12:14 Anion Gap 18.4 (5-19) 03/17/25 12:14 BUN 18 mg/dL (8-23) 03/17/25 12:14 Creatinine 1.4 mg/dL (0.5-0.9) H 03/17/25 12:14 GFR Calculation 37.6 mL/min (90-130) L 03/17/25 12:14 Glucose 102 mg/dL (65-115) 03/17/25 12:14 Calculated Osmolality 292 mOsm/kg (285-295) 03/17/25 12:14 Calcium 9.4 mg/dL (8.5-10.5) 03/17/25 12:14 Total Bilirubin 0.6 mg/dL (0.15-1.2) 03/17/25 12:14 AST 26 U/L (0-32) 03/17/25 12:14 ALT 26 U/L (0-33) 03/17/25 12:14 Alkaline Phosphatase 85 U/L (35-105) 03/17/25 12:14 Troponin T Baseline < 6 ng/L (0-10) 03/17/25 12:14 Troponin T 120 Minute < 6.0 ng/L (0-10) 03/17/25 14:10 Delta Troponin T 0 ABS# (0-10) 03/17/25 14:10 NT-Pro-B Natriuret Pep 125 pg/mL (0-125) 03/17/25 12:14 Total Protein 7.2 g/dL (6.6-8.7) 03/17/25 12:14 Albumin 4.5 g/dL (3.5-5.2) 03/17/25 12:14 Globulin 2.7 g/dL (1.3-4.6) 03/17/25 12:14 Lipase 71 U/L (13-60) H 03/17/25 12:14 Urine Color Yellow (Yellow) 03/17/25 13:55 Urine Appearance Clear (CLEAR) 03/17/25 13:55 Urine pH 5.5 (5-7) 03/17/25 13:55 Ur Specific [place] 1.013 (1.005-1.030) 03/17/25 13:55 Urine Protein Negative (Negative) 03/17/25 13:55 Urine Glucose (UA) Negative (Normal) 03/17/25 13:55 Urine Ketones Trace (Negative) 03/17/25 13:55 Urine Blood Negative (Negative) 03/17/25 13:55 Urine Nitrate Negative (Negative) 03/17/25 13:55 Urine Bilirubin Negative (Negative) 03/17/25 13:55 Urine Urobilinogen 0.2 mg/dL (Negative) 03/17/25 13:55 Ur Leukocyte Esterase Trace (Negative) A 03/17/25 13:55 Urine RBC 0-2 /hpf (0-2) 03/17/25 13:55 Urine WBC 0-5 /hpf (0-5) 03/17/25 13:55 Ur Squamous Epith Cells 0-5 /hpf (0-5) 03/17/25 13:55 Amorphous Sediment Not Reportable 03/17/25 13:55 Urine Bacteria None seen /hpf (NONE) 03/17/25 13:55 Hyaline Casts 21.08 /lpf 03/17/25 13:55 All radiology interpretation(s) finalized by discharge Discharge Plan Discharge Patient Disposition: Home Clinical Impression: Atypical chest pain Condition: Stable Prescriptions: New omeprazole 20 mg capsule,delayed release(DR/EC) 20 mg PO DAILY Qty: 30 0RF No Action cetirizine [Zyrtec] 10 mg tablet 10 mg PO DAILY ondansetron HCl 4 mg tablet 4 mg PO Q8H PRN (Reason: nausea and vomiting) Qty: 7 0RF triamcinolone acetonide 0.1 % cream 1 applic topical BID Qty: 80 3RF Test Boost Max capsule PO BID estradiol [Estrace] 0.01 % (0.1 mg/gram) cream 1 g vaginal .at bedtime Qty: 42.5 2RF Rx Instructions: use nightly for 1 week then 2 times week. bupropion HCl [Wellbutrin XL] 150 mg tablet extended release 24 hr 150 mg PO QAM Qty: 90 1RF metoprolol succinate [Toprol XL] 50 mg tablet extended release 24 hr 50 mg PO .at bedtime Qty: 90 1RF sertraline [Zoloft] 25 mg tablet 25 mg PO DAILY Qty: 90 1RF Mounjaro 10 mg/0.5 mL pen injector 10 mg SUBCUT .weekly Qty: 2 2RF valsartan [Diovan] 320 mg tablet 320 mg PO DAILY Qty: 90 1RF Discharge Orders: Discharge ED (Routine); Ordered 03/17/25 Ordered By: Jose Angel Gonzalez Referrals: Neil Boone, [employer] REPRESENTATIVE[employer] [Primary Care Provider, Family Practice] Patient Instructions: Chest Pain (DC) Activity Restrictions/Additional Instructions: Follow-up with your primary care provider within 1 week for recheck. Print Language: Maori Coding Level of Care Code ED Laborer/Key Man for Kayla Rucker
== END 2025-03-17 15:16 | disposition home or self-care (01) ==
PROVIDERS: Emergency Provider Emergency Medicine; PCP Nurse Practitioner
DX: R07.89 Other chest pain (principal); E11.9 Type 2 diabetes mellitus without complications; I10 Essential (primary) hypertension; Z85.3 Personal history of malignant neoplasm of breast
CPT/HCPCS: 36415; 71045; 76705; 80053; 81001; 83690; 83880; 84484; 85025; 93005; 99285; J9999

== ENCOUNTER 2025-03-20 12:45 | Oncology outpatient (recurring) (ONCR) | payer MEDICARE, OTHER, SELFPAY | END 2025-03-27 23:59 | disposition home or self-care (01) | PROVIDERS: PCP Nurse Practitioner; Visit Provider Nurse Practitioner Family | DX: C50.312 Malignant neoplasm of lower-inner quadrant of left female breast (principal) | CPT/HCPCS: 99213 ==

== ENCOUNTER 2025-03-28 09:46 | Oncology outpatient (recurring) (ONCR) | payer MEDICARE, OTHER, SELFPAY ==
--- NOTE | 2025-03-28 09:45 | MM_ITS ---
WS: [id number] DIAGNOSTIC BILATERAL DIGITAL BREAST TOMOSYNTHESIS MAMMOGRAPHY WITH CAD HISTORY: breast cancer COMPARISON: 03/21/2024, 07/16/2023, 08/12/2022 TECHNIQUE: Bilateral craniocaudad, mediolateral oblique, and mediolateral views are submitted with tomosynthesis and SM. Computer aided detection utilized. Breast composition: There are scattered areas of fibroglandular density. Postoperative lumpectomy site noted in the inferior medial LEFT breast. There is few small dystrophic calcifications in resection site. No new mass. No suspicious grouping of calcifications. MM/MM diag BI tomosynthesis [id number] IMPRESSION: BI-RADS: 2 - Benign. FOLLOW UP: 1 Year Follow-up
== END 2025-04-27 23:59 | disposition home or self-care (01) ==
PROVIDERS: PCP Nurse Practitioner; Visit Provider Nurse Practitioner Family
DX: C50.312 Malignant neoplasm of lower-inner quadrant of left female breast (principal); R92.323 Mammographic fibroglandular density, bilateral breasts; Z98.890 Other specified postprocedural states; R92.1 Mammographic calcification found on diagnostic imaging of breast
CPT/HCPCS: 77062; G0279

== ENCOUNTER → 2025-04-18 10:15 | Outpatient (BNVA) | payer MEDICARE, OTHER, SELFPAY | PROVIDERS: PCP Nurse Practitioner; Visit Provider Nurse Practitioner | DX: I10 Essential (primary) hypertension (principal) | CPT/HCPCS: 80048 ==

== ENCOUNTER → 2025-05-11 10:20 | Outpatient (BNVA) | payer MEDICARE, OTHER, SELFPAY | PROVIDERS: PCP Nurse Practitioner; Visit Provider Nurse Practitioner Family | DX: L30.8 Other specified dermatitis (principal); L81.4 Other melanin hyperpigmentation; L82.1 Other seborrheic keratosis; D18.01 Hemangioma of skin and subcutaneous tissue; D23.72 Other benign neoplasm of skin of left lower limb, including hip; L82.0 Inflamed seborrheic keratosis; L29.89 Other pruritus; L53.8 Other specified erythematous conditions; R20.8 Other disturbances of skin sensation; Z78.9 Other specified health status; L57.0 Actinic keratosis | CPT/HCPCS: 17000; 17110; 99213 ==

== ENCOUNTER 2025-06-20 11:30 | Oncology outpatient (recurring) (ONCR) | payer MEDICARE, OTHER, SELFPAY ==
[2025-06-20 12:26] LABS: Hematocrit 40.9 % (36-47); Hemoglobin 13.30 g/dL (11.27-16.99); Mean Corpuscular HGB Conc 32.5 g/dL (30-55); Mean Corpuscular Hemoglobin 28.4 pg (27-33); Mean Corpuscular Volume 87.4 fl (85-98); Nucleated Red Blood Cells % 0 %; Platelet Count 279 10^3/cmm (157-399); Red Blood Count 4.68 10^6/uL (3.85-5.65); White Blood Count 6.31 10^3/uL (3.29-11.43)
[2025-06-20 12:53] LABS: Alanine Aminotransferase 13 U/L (0-33); Albumin Level 4.4 g/dL (3.5-5.2); Alkaline Phosphatase 72 U/L (35-105); Anion Gap 12.4 (5-19); Aspartate Amino Transferase 13 U/L (0-32); Blood Urea Nitrogen 17 mg/dL (8-23); Calcium 9.5 mg/dL (8.5-10.5); Carbon Dioxide 26 mmol/L (22-29); Chloride 107 mmol/L (98-107); Creatinine Clr Calc Pharmacy 66.2554; Globulin 2.9 g/dL (1.3-4.6); Glucose 99 mg/dL (65-115); Osmolality Calculated 294 mOsm/kg (285-295); Potassium 4.4 mmol/L (3.5-5.1); Sodium 141 mmol/L (136-145); Total Protein 7.3 g/dL (6.6-8.7)
== END 2025-06-27 23:59 | disposition home or self-care (01) ==
PROVIDERS: Internal Medicine; PCP Nurse Practitioner; Visit Provider Internal Medicine Medical Oncology
DX: Z08 Encounter for follow-up examination after completed treatment for malignant neoplasm (principal); Z85.3 Personal history of malignant neoplasm of breast
CPT/HCPCS: 36415; 80053; 83615; 85025; 99214

== ENCOUNTER → 2025-09-06 14:24 | Outpatient (BNVA) | payer MEDICARE, OTHER, SELFPAY | PROVIDERS: PCP Nurse Practitioner; Visit Provider Nurse Practitioner | DX: L98.9 Disorder of the skin and subcutaneous tissue, unspecified (principal) | CPT/HCPCS: 88305 ==